=== PATIENT | male | born 1975 | race Caucasian/White ===

== ENCOUNTER 2019-02-02 12:27 | Outpatient (CLI) | payer OTHER ==
--- NOTE | 2019-02-03 10:53 | MRI Report ---
Reason: PARESTHESIA OF SKIN Procedure Date: 02/02/2019 Accession Number: [id number] / [id number] Procedure: MRI - Cervical Spine W/O CPT Code: FULL RESULT: EXAM: MRI CERVICAL SPINE WITHOUT CONTRAST EXAM DATE: 02/02/2019 01:35 PM. CLINICAL HISTORY: Paresthesia of skin. 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 Neck pain and bilateral shoulder, arm, and hand numbness. COMPARISONS: None. TECHNIQUE: Multiplanar, multisequence T1-weighted and fluid-sensitive sequences of the cervical spine without contrast. Other: None. FINDINGS: Neurologic Structures: The visualized posterior fossa structures are unremarkable. No signal abnormality in the visualized spinal cord. Alignment: No scoliosis or spondylolisthesis. Mild reversal of normal cervical lordosis at C3-C4. Bone Marrow: No gross fractures or bone lesions. Mild diskogenic edema at C6-C7 and to lesser extent C4-C5. Interspace Levels/Facets: C1-C2: Mild degenerative changes anteriorly. C2-C3: Unremarkable. C3-C4: Minimal disk osteophyte complex. Minimal central canal stenosis. C4-C5: Small bilobed disk osteophyte complex. Mild central canal stenosis with subtle mass effect on the cervical cord. Mild bilateral neural foramen stenosis. C5-C6: Small disk osteophyte complex. Minimal central canal stenosis. C6-C7: Small disk osteophyte complex. Minimal facet hypertrophy. Mild central canal stenosis with subtle mass effect on the cervical cord. Mild bilateral neural foramen stenosis. C7-T1: Small disk osteophyte complex with small right paracentral protrusion with annular tear. Mild facet hypertrophy. Minimal central canal stenosis. Mild bilateral neural foramen stenosis. T1-T2: Sagittal images only. Small disk osteophyte complex. Minimal central canal stenosis. Musculature: No edema or fatty atrophy. Other: The paravertebral and prevertebral soft tissues are unremarkable. IMPRESSION: 1. Mild degenerative disk and minimal degenerative facet changes. 2. Mild central canal stenosis at C4-C5 and C6-C7. Minimal central canal stenosis at C3-C4, C5-C6, and C7-T1. 3. Mild neural foramen stenosis at C4-C5 bilaterally, C6-C7 bilaterally, and C7-T1 bilaterally. RADIA
== END 2019-02-02 12:28 | disposition home or self-care (01) ==
LOC: DI 12:27
PROVIDERS: ATTEND Student in an Organized Health Care Education/Training Program
DX: M50.30 Other cervical disc degeneration, unspecified cervical region (principal); M48.02 Spinal stenosis, cervical region; M25.78 Osteophyte, vertebrae; R20.2 Paresthesia of skin
CPT/HCPCS: 72141

== ENCOUNTER 2019-07-20 13:25 | Outpatient (CLI) | payer OTHER ==
[2019-07-20] MEDS ORDERED: BUFFERED LIDOCAINE 10 ML SYRINGE ONE (13:31)
[2019-07-20] MEDS ORDERED: GADOBUTROL 10 MMOL/10 ML VIAL ONE (13:32)
[2019-07-20] MEDS ORDERED: IOTHALAMATE MEGLUMINE 50 ML VIAL ONE (13:34)
[2019-07-20] MEDS ORDERED: GADOBUTROL 10 MMOL/10 ML VIAL IVP ONE (15:18)
[2019-07-20] MEDS ORDERED: IOTHALAMATE MEGLUMINE 50 ML VIAL IVP ONE (15:18)
[2019-07-20] MEDS ORDERED: BUFFERED LIDOCAINE 10 ML SYRINGE IU ONE (15:18)
--- NOTE | 2019-07-20 15:25 | XRAY Report ---
Reason: PAIN IN RT SHOULDER Procedure Date: 07/20/2019 Accession Number: [id number] / [id number] Procedure: FL - Arthrogram Needle Placement CPT Code: Final Report FULL RESULT: EXAM: RIGHT SHOULDER ARTHROGRAPHIC INJECTION WITH FLUOROSCOPIC GUIDANCE EXAM DATE: 07/20/2019 03:12 PM. CLINICAL HISTORY: Pain in right shoulder. COMPARISON: None. TECHNIQUE: The risks, benefits, and alternatives of the procedure were discussed with the patient. All questions were answered. Written and verbal consent were obtained. The glenohumeral joint was marked under fluoroscopy and prepped and draped in a sterile manner. Local anesthesia was performed with 1% lidocaine. A 22-gauge needle was then inserted into the glenohumeral joint. 10 mL of a solution containing 25% 1% lidocaine, 25% iodinated contrast, and a 1:200 dilution of gadolinium contrast in sterile saline was then injected. The needle was removed without immediate complication. Other: None. Fluoroscopy Time: 0.1 minutes. Number of Images: 8. FINDINGS: Bones and joints: No fracture or subluxation. Injection: Fluoroscopic images demonstrate needle placement and contrast in the glenohumeral joint. No contrast extravasation outside of the glenohumeral joint. IMPRESSION: Successful fluoroscopically guided arthrographic injection of the shoulder. RADIA
--- NOTE | 2019-07-21 11:21 | MRI Report ---
Reason: PAIN IN RT SHOULDER Procedure Date: 07/20/2019 Accession Number: [id number] / [id number] Procedure: MRI - Arthrogram Shoulder RT CPT Code: Final Report FULL RESULT: EXAM: LIMITED RIGHT SHOULDER MRI ARTHROGRAM WITH CONTRAST EXAM DATE: 07/20/2019 02:27 PM. CLINICAL HISTORY: Right shoulder pain. Decreased range of motion. COMPARISON: None. TECHNIQUE: After an arthrographic injection performed by separate practitioner, the following sequences were acquired of the shoulder: Axial T1-weighted fat-suppressed, axial THRIVE, and coronal T1-weighted fat-suppressed. The examination was terminated due to technical issues. FINDINGS: The examination is extremely limited due to artifact on this examination and many of the sequences not acquired. Acromioclavicular Region: This area was inadequately imaged. Glenohumeral Region: No subluxation. No loose bodies. The articular cartilage is unremarkable. The glenohumeral ligaments and joint capsule are unremarkable. Bone Marrow: Evaluation of the bone marrow cannot be made on this study but there are no displaced fractures. Small erosions are seen in the greater tuberosity. Labrum: The visualized portions are unremarkable Biceps Tendon: The long head of the biceps tendon and biceps sofía are intact. Musculature/Rotator Cuff: The subscapularis tendon demonstrates no large tears. There are no large tears of the supraspinatus and infraspinatus tendons with small tears cannot be excluded on this examination. The teres minor tendon is unremarkable. No edema or fatty atrophy. IMPRESSION: 1. Very limited evaluation. RADIA
== END 2019-07-20 13:26 | disposition home or self-care (01) ==
LOC: DI 13:25
PROVIDERS: ATTEND Student in an Organized Health Care Education/Training Program
DX: M25.511 Pain in right shoulder (principal)
CPT/HCPCS: 23350; 73222; 77002; A9585; Q9961

== ENCOUNTER 2019-08-30 12:41 | Outpatient (CLI) | payer OTHER ==
[2019-08-30] MEDS ORDERED: BUFFERED LIDOCAINE 10 ML SYRINGE ONE (12:45)
[2019-08-30] MEDS ORDERED: IOTHALAMATE MEGLUMINE 50 ML VIAL ONE (12:46)
[2019-08-30] MEDS ORDERED: GADOBUTROL 10 MMOL/10 ML VIAL ONE (12:46)
[2019-08-30] MEDS ORDERED: BUFFERED LIDOCAINE 10 ML SYRINGE IU ONE (13:53)
[2019-08-30] MEDS ORDERED: GADOBUTROL 10 MMOL/10 ML VIAL IVP ONE (13:53)
[2019-08-30] MEDS ORDERED: IOTHALAMATE MEGLUMINE 50 ML VIAL IVP ONE (13:53)
--- NOTE | 2019-08-30 15:48 | XRAY Report ---
Reason: PAIN IN RT SHOULDER Procedure Date: 08/30/2019 Accession Number: [id number] / [id number] Procedure: FL - Arthrogram Needle Placement CPT Code: Final Report FULL RESULT: EXAM: RIGHT SHOULDER ARTHROGRAPHIC INJECTION WITH FLUOROSCOPIC GUIDANCE EXAM DATE: 08/30/2019 12:59 PM. CLINICAL HISTORY: PAIN IN RT SHOULDER. COMPARISON: ARTHROGRAM SHOULDER RT 08/30/2019 2:04 PM ARTHROGRAM SHOULDER RT 07/20/2019 2:27 PM. TECHNIQUE: The risks, benefits, and alternatives of the procedure were discussed with the patient. All questions were answered. Written and verbal consent were obtained. The right glenohumeral joint was marked under fluoroscopy and prepped and draped in a sterile manner. Local anesthesia was performed with 1% lidocaine. A 22-gauge needle was then inserted into the glenohumeral joint. 10 mL of a solution containing 25% 1% lidocaine, 25% iodinated contrast, and a 1:200 dilution of gadolinium contrast in sterile saline was then injected. The needle was removed without immediate complication. Other: None. Fluoroscopy Time: 38 seconds. Number of Images: 3. FINDINGS: Bones and joints: No fracture or subluxation. Injection: Fluoroscopic images demonstrate needle placement and contrast in the right glenohumeral joint. IMPRESSION: Successful fluoroscopically guided arthrographic injection of the right shoulder. RADIA
--- NOTE | 2019-08-31 08:33 | MRI Report ---
Reason: PAIN IN RT SHOULDER Procedure Date: 08/30/2019 Accession Number: [id number] / [id number] Procedure: MRI - Arthrogram Shoulder RT CPT Code: Final Report FULL RESULT: EXAM: RIGHT SHOULDER MRI ARTHROGRAM WITH CONTRAST EXAM DATE: 08/30/2019 02:39 PM. CLINICAL HISTORY: PAIN IN RT SHOULDER. COMPARISON: ARTHROGRAM SHOULDER RT 07/20/2019 2:27 PM. TECHNIQUE: Multiplanar, multisequence T1-weighted and fluid-sensitive sequences of the shoulder after an arthrographic injection of dilute gadolinium, dictated under a separate exam. Other: None. FINDINGS: Acromioclavicular Region: The acromion is type II. Marrow edema and cortical irregularity at the distal end of the clavicle and medial aspect of the acromion. The inferior surface of the AC joint mildly indents the bursal surface of the supraspinatus muscle tendon unit. The coracoacromial and coracoclavicular ligaments are intact. There is no contrast or fluid in the subacromial/subdeltoid bursa. Glenohumeral Region: No subluxation. No loose bodies. The articular cartilage is unremarkable. The glenohumeral ligaments and joint capsule are unremarkable. Bone Marrow: No fracture, marrow edema or bone lesions. Labrum: The labrum is unremarkable. Biceps Tendon: The long head of the biceps tendon and biceps sofía are intact. Musculature/Rotator Cuff: There is a small, 5 x 2 mm low-grade partial intrasubstance tear at the distal end of the supraspinatus/infraspinatus tendon junction. There is also infraspinatus tendinosis. The teres minor and subscapularis tendons are unremarkable. No edema or fatty atrophy. Other: The subcutaneous tissues are unremarkable. IMPRESSION: 1. Small, focal, low-grade partial-thickness intrasubstance insertional tear at the distal end of the supraspinatus-infraspinatus tendon junction. There is also infraspinatus tendinosis. 2. No labral tear. 3. Moderate AC joint osteoarthrosis. RADIA
== END 2019-08-30 12:42 | disposition home or self-care (01) ==
LOC: DI 12:41
PROVIDERS: ATTEND Student in an Organized Health Care Education/Training Program
DX: M75.111 Incomplete rotator cuff tear or rupture of right shoulder, not specified as traumatic (principal); M19.011 Primary osteoarthritis, right shoulder
CPT/HCPCS: A9585; Q9961; 77002

== ENCOUNTER 2020-08-06 14:05 | Outpatient (CLI) | payer OTHER | END 2020-08-06 23:59 | disposition home or self-care (01) | LOC: COV 14:05 | PROVIDERS: ATTEND Orthopaedic Surgery | DX: Z01.812 Encounter for preprocedural laboratory examination (principal); Z20.828 Contact with and (suspected) exposure to other viral communicable diseases; M19.011 Primary osteoarthritis, right shoulder ==

== ENCOUNTER 2020-08-09 12:28 | Day surgery (SDC) | payer OTHER ==
[~2020-08-09 12:28] MED LIST: LACTATED RINGERS 1,000 ML IV ONE; cefTRIAXone 2 GM VIAL ONE
[2020-08-09] MEDS ORDERED: BUPIVACAINE 0.25% PF 30 ML VIAL ONE (13:14)
[2020-08-09] MEDS ORDERED: EPINEPHrine 1 MG/ML AMP ONE (13:14)
[2020-08-09] MEDS ORDERED: METOCLOPRAMIDE 10 MG/2 ML VIAL IVP PRN (13:29)
[2020-08-09] MEDS ORDERED: ONDANSETRON 4 MG/2 ML VIAL IVP PRN ×2 (13:29→18:55)
[2020-08-09] MEDS ORDERED: HYDROmorphone 0.5 MG/0.5 ML SYRINGE IVP PRN (13:29)
[2020-08-09] MEDS ORDERED: MORPHINE 2 MG/ML CARPUJECT IVP PRN (13:29)
[2020-08-09] MEDS ORDERED: ePHEDrine 50 MG/ML VIAL IVP PRN (13:29)
[2020-08-09] MEDS ORDERED: ATROPINE ABBOJECT 1 MG/10 ML SYRINGE IVP PRN (13:29)
[2020-08-09] MEDS ORDERED: NALOXONE 0.4 MG/ML VIAL IVP PRN (13:29)
[2020-08-09] MEDS ORDERED: fentaNYL 100 MCG/2 ML VIAL IVP PRN (13:29)
--- NOTE | 2020-08-09 13:29 | ANESTHESIA ---
Pre-Anesthesia VS, & Labs - Diagnosis Right Shoulder Arthritis/Bursitis - Procedure Right Diagnostic Shoulder scope, open distal clavicle Vital Signs: Temp Pulse Resp BP Pulse Ox 36.6 C 59 L 16 120/77 97 08/09/20 12:31 08/09/20 12:31 08/09/20 12:31 08/09/20 12:31 08/09/20 12:31 Height: 6 ft 2 in Weight (kg): 99.79 kg Body Mass Index: 28.2 BMI Classification: Overweight - NPO >8 hours, Other (Clear Liquids 1000) Home Medications and Allergies Home Medications: Ambulatory Orders No Known Home Medications 07/31/20 No Known Home Medications 07/31/20 Allergies/Adverse Reactions: Allergies Allergy/AdvReac Type Severity Reaction Status Date / Time No Known Drug Allergies Allergy Verified 08/09/20 13:04 Anes History & Medical History - Anesthetic History Anesthesia Complications: reports: No previous complications Family history of Anesthesia Complications: Denies Family history of Malignant Hyperthermia: Denies - Medical History Cardiovascular: reports: None Pulmonary: reports: None Gastrointestinal: reports: None Urinary: reports: None Neuro: reports: None Musculoskeletal: reports: Other (Shrapnel in left forearm) Endocrine/Autoimmune: reports: None Skin: reports: None - Surgical History Orthopedic: Other Exam General: Alert, Oriented x3, Cooperative, No acute distress Dental: WNL Mouth Opening: Greater than 4 Fingerbreadths Neck Mobility: Normal Mallampati classification: I Thyromental Distance: 4-6 cm Respiratory: Lungs clear, Normal breath sounds, No respiratory distress, No accessory muscle use Cardiovascular: Regular rate, Normal S1, Normal S2, No murmurs Plan Anesthesia Type: General, Supraclavicular Block Consent for Procedure(s) Verified and Reviewed: Yes Code Status: Attempt Resuscitation ASA classification: 1-Healthy patient Is this case an emergency?: No (Discussed anesthesia, consent signed.)
[2020-08-09] MEDS ORDERED: ROPIVACAINE 0.5% PF 20 ML AMPULE ONE (13:55)
[2020-08-09] MEDS ORDERED: DEXAMETHASONE 4 MG/ML VIAL ONE ×3 (13:55→16:52)
[2020-08-09] MEDS ORDERED: LACTATED RINGERS 1,000 ML IV SCH (14:00)
[2020-08-09] MEDS ORDERED: fentaNYL 100 MCG/2 ML VIAL ONE ×2 (14:14→19:34)
[2020-08-09] MEDS ORDERED: MIDAZOLAM 2 MG/2 ML VIAL ONE (14:14)
[2020-08-09] MEDS ORDERED: KETAMINE 500 MG/10 ML VIAL ONE (14:14)
[2020-08-09] MEDS ORDERED: LIDOCAINE-MPF 2% 5 ML VIAL ONE (14:20)
[2020-08-09] MEDS ORDERED: PROPOFOL 200 MG/20 ML VIAL IVP ONE (14:26)
[2020-08-09] MEDS ORDERED: ONDANSETRON 4 MG/2 ML VIAL ONE (14:27)
[2020-08-09] MEDS ORDERED: KETOROLAC 30 MG/ML VIAL ONE (14:27)
[2020-08-09] MEDS ORDERED: SODIUM CHLORIDE 0.9% 10 ML ONE (14:28)
[2020-08-09] MEDS ORDERED: EPINEPHrine 1 MG/ML AMP IR ONE (16:30)
[2020-08-09] MEDS ORDERED: SEVOFLURANE 250 ML LIQUID INH ONE (16:50)
[2020-08-09] MEDS ORDERED: ACETAMINOPHEN 1,000 MG/100 ML 100 ML IV ONE (17:09)
[2020-08-09] MEDS ORDERED: ePHEDrine 50 MG/ML AMP IVP ONE (17:31)
[2020-08-09] MEDS ORDERED: BUPIVACAINE 0.25% PF 30 ML VIAL SUBQ ONE ×2 (17:38→18:35)
[2020-08-09] MEDS ORDERED: LACTATED RINGERS 1,000 ML IV ONE (17:47)
[2020-08-09] MEDS ORDERED: HYDROmorphone 1 MG/ML CARPUJECT ONE (18:02)
[2020-08-09] MEDS ORDERED: SUGAMMADEX 200 MG/2 ML VIAL IVP ONE (18:09)
[2020-08-09] MEDS ORDERED: oxyCODONE 5 MG TABLET PO PRN (18:55)
--- NOTE | 2020-08-09 19:03 | OPERATIVE REPORT ---
Operative Report - Other Other Information/Narrative: Date of Surgery: 09 August 2020 Pre-Op Diagnosis: Right AC joint arthritis. Partial-thickness rotator cuff tear Procedure: Right shoulder diagnostic arthroscopy with rotator cuff debridement, SAD, and open distal clavicle excision Postop Diagnosis: Same Primary Surgeon: Anirudh Rao Secondary Surgeon: None Complications: None EBL: 50 mL IMPLANTS: None POSTOPERATIVE PLAN: 0-2 weeks-Sling at all times. Pendulum exercises 5 times per day. 2-6 weeks-Passive and active range of motion without limitations. 6-12 weeks-Gradually increase strengthening focusing on rotator cuff and scapular stabilizers per protocol. EXAMINATION UNDER ANESTHESIA: ROM: Full Anterior load and shift: Normal Posterior load and shift: Normal Inferior sulcus: Normal ARTHROSCOPIC FINDINGS: Rotator interval: Normal Biceps tendon & SLAP: Normal Subscapularis: Normal Rotator Cuff: Partial-thickness articular sided tear of the rotator cuff that did not meet indications for repair. There were no bursal sided tears. HAGL: Normal Labrum: Normal Glenoid Cartilage: Normal Humeral Head Cartilage: Normal INDICATION FOR SURGERY: 45-year-old male with longstanding history of AC joint arthritis that is successfully been treated by injections. He also has some partial-thickness rotator cuff tearing on MRI. Goals was to resect the distal clavicle and assess the rotator cuff to see if it needs repair.. Nonoperative managment failed to resolve symptoms. The risks, benefits, and alternatives were discussed. Risks included pain, bleeding, infection, damage to nearby structures, lack of symptom relief, implant complications, stiffness, need for further surgeries, DVT, PE, stroke, and even . He signed a written consent form. PROCEDURE IN DETAIL: The patient was met in the preoperative holding on the day of the procedure. Operative extremity was signed. Consent was verified. They desired to proceed. Regional anesthesia was obtained in the preoperative area. They were brought to the operating room and surrendered to anesthesia. Once general anesthesia was obtained they were placed in the lateral decubitus position with the operative side up. An axillary roll was placed and all bony prominences were well-padded. A surgical timeout was held to confirm the patient procedure, identity, procedure, laterality, allergies, images, and antibiotics. All were in agreement we proceeded. A standard diagnostic arthroscopy was performed utilizing posterior and anterosuperior portals. The anterosuperior portal was created under direct visualization and localized with a spinal needle. The 7 mm cannula was placed anteriorly. The findings of the diagnostic arthroscopy can be found above. I then proceeded to use a sucker shaver to debride the frayed edges of the supraspinatus. The Posta lesion measured 5 mm from the articular edge and did not meet surgical indications. Additionally he did not have symptoms consistent with this. I then decided to move into the subacromial space to assess whether there is an associated bursal sided tear. SUBACROMIAL DECOMPRESSION: The instruments and cannula were then removed from the glenohumeral joint. The scope trocar was placed in the posterior portal and the acromion was felt. It was then inserted just under the acromion scraping along the bone until the CA ligament was felt. The scope trocar was then brought just lateral to the CA ligament and out the anterior incision. The cannula was then brought over the scope trocar arthroscope were inserted. The arthroscope was backed up until the shaver and arthroscope in the subacromial space. I then systemically debrided the bursa using a sucker shaver and radiofrequency ablation wand. A direct lateral incision was made and the bursectomy and decompression was completed through the lateral incision. All soft tissue was debrided from the underside of the acromion and the posterior edge of the CA ligament was lifted. Care was taken to keep the deltoid fascia intact. The rotator cuff was then evaluated and there was no full-thickness tear. Final images were taken OPEN DISTAL CLAVICLE EXCISION: A 5 cm incision was made in line with the clavicle, centered over the acromioclavicular joint. Electrocautery was used to obtain hemostasis. Full-thickness skin flaps were made at the level of the fascia/joint capsule. A full-thickness longitudinal was made longitudinally to open the acromioclavicular joint. Electrocautery was used to dissect the joint capsule from the bony surfaces. 2 Homans were placed around the distal clavicle. Rongeur was used to debride the intra-articular disc. An 8 mm resection was measured and performed with a sagittal saw. Care was taken to ensure this cut was parallel to the joint surface. All sharp bony edges were rounded. A finger was placed with into the defect and the arm was adducted fully without any impingement in the joint. The joint was then irrigated copiously. A watertight capsular and fascial closure was performed with 0 Vicryl. The portal sites were then closed with 3-0 Monocryl buried. Any open incisions were closed with 2-0 Vicryl in the dermis and a running 3-0 Monocryl in the skin. Mastisol and Steri-Strips were applied. A sterile dressing and a sling was applied. A sling was placed. The patient was awakened and transferred to the recovery room.
--- NOTE | 2020-08-09 19:38 | ANESTHESIA POST OP EVALUATION ---
Anesthesia Post Eval - Post Anesthesia Eval Vitals: Last Vital Signs Temp 36.8 C 08/09/20 18:53 Pulse 90 08/09/20 19:15 Resp 17 08/09/20 19:15 BP 127/75 08/09/20 19:15 Pulse Ox 90 L 08/09/20 19:15 CV Function Including HR & BP: positive: Stable Pain Control: positive: Satisfactory (Required rescue supraclavicular block in recovery. Pain subsiding.) Nausea & Vomiting: positive: Negative Mental Status: positive: Baseline Respiratory Status: Airway Patent Hydration Status: Satisfactory Anesthesia Complications: positive: None (awake and alert)
[2020-08-09 20:43] VITALS: BP 126/72
== END 2020-08-09 21:35 | disposition home or self-care (01) ==
LOC: SDS 12:28 → MS2 20:03 → SDS 21:35
PROVIDERS: ATTEND Orthopaedic Surgery
DX: M19.011 Primary osteoarthritis, right shoulder (principal); M75.111 Incomplete rotator cuff tear or rupture of right shoulder, not specified as traumatic